=== PATIENT | male | born 2000 | race Caucasian/White ===

== ENCOUNTER 2022-01-11 21:23 | Emergency (ER) | payer BC ==
[2022-01-11] MEDS ORDERED: Potassium Chloride 10 MEQ Tab.ER PO ONE (23:41)
[2022-02-05 16:04] LABS: ANION GAP 11.3 mEq/L (7-13); CHLORIDE,CL 100 mmol/L (98-107); ESTIMATED GFR 124 mL/min (>=60); SODIUM,NA 137 mmol/L (136-145)
== END 2022-01-11 23:50 | disposition home or self-care (01) ==
LOC: DL.ED 21:23
DX: R73.9 Hyperglycemia, unspecified (principal); E87.6 Hypokalemia; Z86.16 Personal history of COVID-19
CPT/HCPCS: 36415; 71045; 80053; 84484; 85025; 99285; A9270; 93010; 99284

== ENCOUNTER 2022-01-13 18:14 | Emergency (ER) | payer BC ==
[2022-01-13] MEDS ORDERED: Sodium Chloride 0.9% 1,000 ML IV ONE (20:00)
[2022-02-06 16:14] LABS: ANION GAP 13.1 mEq/L (7-13); CHLORIDE,CL 103 mmol/L (98-107); ESTIMATED GFR 126 mL/min (>=60); SODIUM,NA 139 mmol/L (136-145)
[2022-02-06 16:18] LABS: AMPHETAMINES,URINE NEGATIVE (NEGATIVE); BARBITURATES,URINE NEGATIVE (NEGATIVE); BENZODIAZEPINE,URINE NEGATIVE (NEGATIVE); MDMA (ECSTASY), URINE NEGATIVE (NEGATIVE); METHADONE,URINE NEGATIVE (NEGATIVE); METHAMPHETAMINES,URINE NEGATIVE (NEGATIVE); OPIATES,URINE NEGATIVE (NEGATIVE); OXYCODONE,URINE NEGATIVE (NEGATIVE); PHENCYCLIDINE,URINE NEGATIVE (NEGATIVE); TCA,URINE NEGATIVE (NEGATIVE)
== END 2022-01-13 22:11 | disposition home or self-care (01) ==
LOC: DL.ED 18:14
DX: R07.9 Chest pain, unspecified (principal)
CPT/HCPCS: 36415; 70450; 71045; 80053; 80305; 81003; 83605; 83735; 84439; 84443; 85025; 96360; 99285; J7030

== ENCOUNTER 2022-02-10 08:40 | Emergency (ER) | payer BC ==
[2022-02-10 09:39] LABS: ANION GAP 13.7 mEq/L (7-13); CHLORIDE,CL 100 mmol/L (98-107); ESTIMATED GFR 105 mL/min (>=60); SODIUM,NA 140 mmol/L (136-145)
[2022-02-10] MEDS ORDERED: Sodium Chloride 0.9% 10 ML Syringe FLUSH PRN ×2 (09:57→10:00)
[2022-02-10] MEDS ORDERED: Colchicine 0.6 MG Tab PO ONE (10:01)
[2022-02-10] MEDS ORDERED: Ibuprofen 800 MG Tab PO ONE (10:02)
== END 2022-02-10 10:30 ==
LOC: DL.ED 08:40
DX: I30.1 Infective pericarditis (principal); R79.89 Other specified abnormal findings of blood chemistry; Z79.899 Other long term (current) drug therapy; Z86.16 Personal history of COVID-19
CPT/HCPCS: 36415; 71045; 80053; 83735; 84484; 85025; 85379; 85651; 86140; 93005; 99285; A9270; J3490

== ENCOUNTER 2022-02-12 02:39 | Emergency (ER) | payer BC ==
[2022-02-12 03:47] LABS: ANION GAP 12.6 mEq/L (7-13); CHLORIDE,CL 103 mmol/L (98-107); SODIUM,NA 140 mmol/L (136-145)
[2022-02-12 03:48] LABS: ESTIMATED GFR 121 mL/min (>=60)
== END 2022-02-12 05:00 | disposition home or self-care (01) ==
LOC: DL.ED 02:39
DX: I51.4 Myocarditis, unspecified (principal); Z79.82 Long term (current) use of aspirin
CPT/HCPCS: 36415; 71045; 80053; 80307; 83735; 84484; 85025; 86140; 93005; 99285

== ENCOUNTER 2022-02-12 19:18 | Emergency (ER) | payer BC ==
[2022-02-12] MEDS ORDERED: LORazepam 1 MG Tab PO ONE (19:19)
[2022-02-12] MEDS ORDERED: Sodium Chloride 0.9% 10 ML Syringe FLUSH PRN (20:09)
[2022-02-12 21:03] LABS: PTT,PARTIAL THROMBOPLSTIN TIME 25.1 SEC (22.0-34.0)
[2022-02-12 21:13] LABS: ANION GAP 13.4 mEq/L (7-13); CHLORIDE,CL 103 mmol/L (98-107); SODIUM,NA 141 mmol/L (136-145)
[2022-02-12 21:23] LABS: ESTIMATED GFR 122 mL/min (>=60)
[2022-02-12 21:39] LABS: AMPHETAMINES,URINE NEGATIVE (NEGATIVE); BARBITURATES,URINE NEGATIVE (NEGATIVE); BENZODIAZEPINE,URINE NEGATIVE (NEGATIVE); MDMA (ECSTASY), URINE NEGATIVE (NEGATIVE); METHADONE,URINE NEGATIVE (NEGATIVE); METHAMPHETAMINES,URINE NEGATIVE (NEGATIVE); OPIATES,URINE NEGATIVE (NEGATIVE); OXYCODONE,URINE NEGATIVE (NEGATIVE); PHENCYCLIDINE,URINE NEGATIVE (NEGATIVE); TCA,URINE NEGATIVE (NEGATIVE)
[2022-02-12] MEDS ORDERED: LORazepam 1 MG Tab ONE (22:07)
== END 2022-02-12 22:15 | disposition home or self-care (01) ==
LOC: DL.ED 19:18
DX: I51.4 Myocarditis, unspecified (principal); F41.9 Anxiety disorder, unspecified; Z86.16 Personal history of COVID-19; Z79.82 Long term (current) use of aspirin
CPT/HCPCS: 36415; 70450; 80053; 80305; 80307; 81003; 83605; 83735; 83880; 84145; 84443; 84484; 85025; 85379; 85610; 85730; 93005; 99285; A9270

== ENCOUNTER 2022-03-09 11:14 | Emergency (ER) | payer BC ==
[2022-03-09 13:44] LABS: ANION GAP 10.8 mEq/L (7-13); CHLORIDE,CL 101 mmol/L (98-107); SODIUM,NA 139 mmol/L (136-145)
[2022-03-09 13:47] LABS: ESTIMATED GFR 107 mL/min (>=60)
[2022-03-14 12:47] LABS: C.TRACHOMATIS BY TMA Negative (Negative); N.GONORRHOEAE BY TMA Negative (Negative)
== END 2022-03-09 14:27 | disposition home or self-care (01) ==
LOC: DL.ED 11:14
DX: R06.02 Shortness of breath (principal); K59.04 Chronic idiopathic constipation; R30.0 Dysuria; Z79.899 Other long term (current) drug therapy; Z79.82 Long term (current) use of aspirin; Z86.16 Personal history of COVID-19
CPT/HCPCS: 71045; 74176; 80053; 81001; 83880; 84484; 85025; 86140; 87491; 87563; 87591; 99285

== ENCOUNTER 2022-03-16 19:52 | Emergency (ER) | payer BC ==
[2022-03-16 22:15] LABS: ANION GAP 9.6 mEq/L (7-13)
== END 2022-03-16 22:29 | disposition home or self-care (01) ==
LOC: DL.ED 19:52
DX: K52.1 Toxic gastroenteritis and colitis (principal); T50.905A Adverse effect of unspecified drugs, medicaments and biological substances, initial encounter; Z79.82 Long term (current) use of aspirin; Z86.16 Personal history of COVID-19
CPT/HCPCS: 36415; 80053; 83690; 85025; 99284

== ENCOUNTER 2022-03-17 12:37 | Emergency (ER) | payer BC | END 2022-03-17 15:33 | disposition home or self-care (01) | LOC: DL.ED 12:37 | DX: K52.9 Noninfective gastroenteritis and colitis, unspecified (principal); Z79.82 Long term (current) use of aspirin; Z86.16 Personal history of COVID-19 | CPT/HCPCS: 74018; 81003; 99284 ==

== ENCOUNTER 2022-03-20 07:56 | Emergency (ER) | payer BC | END 2022-03-20 08:54 | disposition home or self-care (01) | LOC: DL.ED 07:56 | DX: R10.84 Generalized abdominal pain (principal); Z79.82 Long term (current) use of aspirin; Z79.899 Other long term (current) drug therapy | CPT/HCPCS: 99283 ==

== ENCOUNTER 2022-03-22 05:11 | Emergency (ER) | payer BC | END 2022-03-22 06:28 | disposition home or self-care (01) | LOC: DL.ED 05:11 | DX: F41.9 Anxiety disorder, unspecified (principal); Z79.82 Long term (current) use of aspirin; Z79.899 Other long term (current) drug therapy | CPT/HCPCS: 99285 ==

== ENCOUNTER 2022-03-22 07:58 | Emergency (ER) | payer BC | END 2022-03-22 10:48 | disposition home or self-care (01) | LOC: DL.ED 07:58 | DX: F41.9 Anxiety disorder, unspecified (principal); Z79.82 Long term (current) use of aspirin; Z79.899 Other long term (current) drug therapy; Z86.16 Personal history of COVID-19 | CPT/HCPCS: 99284 ==

== ENCOUNTER 2022-03-22 20:38 | Emergency (ER) | payer BC | END 2022-03-22 21:32 | disposition left against medical advice (07) | LOC: DL.ED 20:38 | DX: Z53.21 Procedure and treatment not carried out due to patient leaving prior to being seen by health care provider (principal) ==

== ENCOUNTER 2022-03-23 06:28 | Day surgery (SDC) | payer BC ==
[~2022-03-23 06:28] MED LIST: Dextrose 5%-0.45% NaCl 1,000 ML IV SCH; Midazolam 1 MG/ML 2 ML SDV ONE; fentaNYL 100 MCG/2 ML SDV ONE
[2022-03-23] MEDS ORDERED: fentaNYL 100 MCG/2 ML SDV IV ONE ×3 (06:29→08:09)
[2022-03-23] MEDS ORDERED: Midazolam 1 MG/ML 2 ML SDV IV ONE ×7 (06:29→08:08)
== END 2022-03-23 11:30 | disposition home or self-care (01) ==
LOC: DL.ENDO 06:28
PROVIDERS: ATTEND Internal Medicine Gastroenterology
DX: A04.72 Enterocolitis due to Clostridium difficile, not specified as recurrent (principal); F41.1 Generalized anxiety disorder; U09.9 Post COVID-19 condition, unspecified
CPT/HCPCS: J2250; J3010; J7042

== ENCOUNTER 2022-03-23 22:06 | Emergency (ER) | payer BC | END 2022-03-23 23:09 | disposition left against medical advice (07) | LOC: DL.ED 22:06 | DX: Z53.21 Procedure and treatment not carried out due to patient leaving prior to being seen by health care provider (principal) ==

== ENCOUNTER 2022-03-24 12:49 | Emergency (ER) | payer BC | END 2022-03-24 15:12 | disposition home or self-care (01) | LOC: DL.ED 12:49 | DX: R33.9 Retention of urine, unspecified (principal); I10 Essential (primary) hypertension; Z79.82 Long term (current) use of aspirin; Z86.16 Personal history of COVID-19; F60.0 Paranoid personality disorder; Z79.899 Other long term (current) drug therapy | CPT/HCPCS: 36415; 80053; 81001; 85025; 99284; C1758; 51701; 99283 ==

== ENCOUNTER 2022-03-24 20:21 | Emergency (ER) | payer BC ==
[2022-03-24 23:15] LABS: ANION GAP 11.5 mEq/L (7-13); CHLORIDE,CL 104 mmol/L (98-107); SODIUM,NA 142 mmol/L (136-145)
[2022-03-24 23:30] LABS: ESTIMATED GFR 126 mL/min (>=60)
== END 2022-03-24 23:47 | disposition home or self-care (01) ==
LOC: DL.ED 20:21
DX: F60.0 Paranoid personality disorder (principal); I10 Essential (primary) hypertension; Z79.82 Long term (current) use of aspirin; Z79.899 Other long term (current) drug therapy
CPT/HCPCS: 36415; 80053; 85025; 99284

== ENCOUNTER 2022-03-25 17:41 | Emergency (ER) | payer BC | END 2022-03-25 21:19 | disposition left against medical advice (07) | LOC: DL.ED 17:41 | DX: Z53.21 Procedure and treatment not carried out due to patient leaving prior to being seen by health care provider (principal) ==

== ENCOUNTER 2022-03-26 08:26 | Emergency (ER) | payer BC | END 2022-03-26 11:03 | disposition home or self-care (01) | LOC: DL.ED 08:26 | DX: R20.2 Paresthesia of skin (principal); I10 Essential (primary) hypertension; Z79.899 Other long term (current) drug therapy; Z86.16 Personal history of COVID-19 | CPT/HCPCS: 99284 ==

== ENCOUNTER 2022-04-10 08:43 | Emergency (ER) | payer BC ==
[2022-04-10] MEDS: Lactulose Soln 10 GM/15 ML 30 ML UD Cup PO ONE (11:02)
[2022-04-10] MEDS: Bisacodyl 5 MG Tab PO ONE (11:02)
== END 2022-04-10 11:18 | disposition home or self-care (01) ==
LOC: DL.ED 08:43
DX: K59.04 Chronic idiopathic constipation (principal); F41.9 Anxiety disorder, unspecified; R30.0 Dysuria; R35.0 Frequency of micturition; I10 Essential (primary) hypertension; Z79.899 Other long term (current) drug therapy
CPT/HCPCS: 81001; 87081; 87430; 99283; A9270

== ENCOUNTER 2022-04-27 20:48 | Emergency (ER) | payer BC ==
[2022-04-27] MEDS ORDERED: Magnesium Citrate Solution 296 ML Bottle PO ONE (23:48)
== END 2022-04-27 23:57 | disposition home or self-care (01) ==
LOC: DL.ED 20:48
DX: K59.04 Chronic idiopathic constipation (principal); I10 Essential (primary) hypertension; Z86.16 Personal history of COVID-19
CPT/HCPCS: 74018; 99283

== ENCOUNTER 2022-04-28 22:22 | Emergency (ER) | payer BC ==
[2022-04-29 00:53] LABS: ANION GAP 10.5 mEq/L (7-13)
== END 2022-04-29 01:42 | disposition home or self-care (01) ==
LOC: DL.ED 22:22
DX: R07.9 Chest pain, unspecified (principal); I10 Essential (primary) hypertension; Z79.899 Other long term (current) drug therapy
CPT/HCPCS: 36415; 80053; 83735; 84484; 85025; 93005; 99285

== ENCOUNTER 2022-04-29 12:24 | Emergency (ER) | payer BC | END 2022-04-29 13:35 | disposition home or self-care (01) | LOC: DL.ED 12:24 | DX: F41.9 Anxiety disorder, unspecified (principal); I10 Essential (primary) hypertension; Z79.899 Other long term (current) drug therapy | CPT/HCPCS: 99284 ==

== ENCOUNTER 2022-05-02 17:27 | Emergency (ER) | payer BC | END 2022-05-02 17:57 | disposition home or self-care (01) | LOC: DL.ED 17:27 | DX: F41.9 Anxiety disorder, unspecified (principal); I10 Essential (primary) hypertension; Z86.16 Personal history of COVID-19; Z79.899 Other long term (current) drug therapy | CPT/HCPCS: 99283 ==

== ENCOUNTER 2022-05-02 22:11 | Emergency (ER) | payer BC | END 2022-05-02 23:47 | disposition home or self-care (01) | LOC: DL.ED 22:11 | DX: T83.021A Displacement of indwelling urethral catheter, initial encounter (principal); F41.9 Anxiety disorder, unspecified; F42.8 Other obsessive-compulsive disorder; I10 Essential (primary) hypertension; Z86.16 Personal history of COVID-19; Z79.899 Other long term (current) drug therapy | CPT/HCPCS: 51702; 99283 ==